=== PATIENT | female | born 1955 | race Caucasian/White ===

== ENCOUNTER 2019-04-07 10:27 | Observation (INO) ==
[2019-04-07] MEDS ORDERED: CeFAZolin Syr 2,000MG/20 ML 2,000 MG/20 ML SYRINGE IVPB ONE (10:43)
[2019-04-07] MEDS ORDERED: *HR* HYDROmorphone (PF) 1 MG/ML SYRINGE IVP PRN (10:45)
[2019-04-07] MEDS ORDERED: Ringers Solution, Lactated 1,000 ML IVC SCH (10:45)
[2019-04-07] MEDS ORDERED: *HR* OxyCODONE Immed Rel 5 MG TABLET PO PRN (10:45)
[2019-04-07] MEDS ORDERED: Gabapentin 300 MG CAPSULE PO ONE (10:59)
[2019-04-07] MEDS ORDERED: Celecoxib 200 MG CAPSULE PO ONE (10:59)
[2019-04-07] MEDS ORDERED: Ethanol\\Acetic Acid\\Na Ace\\Ben 1,000 ML IRRIG.SOLN IR ONE (13:02)
[2019-04-07] MEDS ORDERED: Dexamethasone 4 MG/ML VIAL ONE (13:03)
[2019-04-07] MEDS ORDERED: Propofol 500 MG/50 ML INFUS..BTL ONE (13:03)
[2019-04-07] MEDS ORDERED: *HR* FentaNYL (PF) 100 MCG/2 ML VIAL ONE (13:03)
[2019-04-07] MEDS ORDERED: *HR* Midazolam HCl 2 MG/2 ML VIAL ONE (13:03)
[2019-04-07] MEDS ORDERED: Lidocaine -MPF 2% 2 ML VIAL ONE (13:03)
[2019-04-07] MEDS ORDERED: Ropivacaine/PF 0.5% 30 ML VIAL ONE (13:09)
[2019-04-07] MEDS ORDERED: Total Joint Mixture (50 ml) IR ONE (13:10)
[2019-04-07] MEDS ORDERED: Tranexamic Acid 1,000 MG/10 ML VIAL ONE (13:11)
[2019-04-07] MEDS ORDERED: EPHEDrine 50 MG/ML VIAL ONE (13:47)
[2019-04-07] MEDS ORDERED: *HR* PHENYLEPHRINE 1,000 MCG/10 ML SYRINGE IVP ONE (14:11)
[2019-04-07] MEDS ORDERED: Ketorolac 30 MG/ML VIAL ONE (15:46)
[2019-04-07] MEDS ORDERED: Naloxone 0.4 MG/ML INJ IVP PRN (15:52)
[2019-04-07] MEDS ORDERED: Ondansetron 4 MG/2 ML VIAL IVP PRN (15:52)
[2019-04-07] MEDS ORDERED: Temazepam 15 MG CAPSULE PO PRN (15:52)
[2019-04-07] MEDS ORDERED: traMADol 50 MG TABLET PO PRN (15:52)
[2019-04-07] MEDS ORDERED: Sennosides 8.6 MG TABLET PO PRN (15:52)
[2019-04-07] MEDS ORDERED: MOM Conc 10 ML UD.LIQ PO PRN (15:52)
[2019-04-07] MEDS ORDERED: *HR* Promethazine 25 MG/ML VIAL IVP PRN (15:52)
[2019-04-07 16:19] LABS: Hematocrit 32.5 % (35.3-44.9); Hemoglobin 10.7 g/dL (11.5-15.4)
[2019-04-07] MEDS: Ascorbic Acid 500 MG TABLET PO SCH (16:42)
[2019-04-07] MEDS: Ringers Solution, Lactated 1,000 ML IVC SCH (16:43)
[2019-04-07] MEDS: Diclofenac Sodium (DR) 50 MG TABLET.DR PO SCH ×2 (17:44→20:51)
[2019-04-07] MEDS: *HR* OxyCODONE Immed Rel 5 MG TABLET PO PRN (17:44)
[2019-04-07] MEDS: Lisinopril-HCTZ 20-12.5mg TABLET PO SCH (18:23)
[2019-04-07] MEDS ORDERED: NON-FORMULARY MEDICATION 1 EACH EACH (Fish Oil/Dha/Epa [Fish Oil 1,200 Mg Fish Oil] 1 CAP) PO SCH (21:00)
[2019-04-08 04:30] LABS: Basophils % 0.4 %; Eosinophils # 0.1 K/mcL (0.0-0.6); Eosinophils % 1.2 %; Immature Granulocytes % 0.3 % (0-4); Lymphocytes # 2.9 K/mcL (0.6-4.6); Lymphocytes % 30.4 %; Mean Corpuscular HGB Conc 33.3 g/dL (31.6-35.5); Mean Corpuscular Hemoglobin 29.8 pg (28.0-33.3); Mean Corpuscular Volume 89.3 fL (83.0-100.0); Mean Platelet Volume 9.7 fL (9.4-12.4); Monocytes # 0.7 K/mcL (0.0-1.3); Monocytes % 7.3 %; Neutrophils # 5.7 K/mcL (1.6-8.9); Platelet Count 210 K/mcL (140-400); Red Blood Count 3.36 M/mcL (3.82-4.97); Red Cell Distribution Width 12.6 % (11.5-14.5); Segmented Neutrophils % 60.4 %; White Blood Count 9.4 K/mcL (4.3-11.1)
[2019-04-08 04:50] LABS: BUN/Creatinine Ratio 32 (6-26); Blood Urea Nitrogen 17 mg/dL (8-23); Calcium 8.3 mg/dL (8.6-10.3); Carbon Dioxide 27 mEq/L (23-29); Chloride 100 mEq/L (98-107); Glucose 102 mg/dL (70-105); Osmolality,Calculated 282 (280-300); Potassium 4.2 mEq/L (3.5-5.1); Sodium 135 mEq/L (136-145); eGFR For African Americans > 60 (> 60); eGFR For Non-African Americans > 60 (> 60)
[2019-04-08] MEDS: Ascorbic Acid 500 MG TABLET PO SCH ×2 (08:28→15:53)
[2019-04-08] MEDS: Diclofenac Sodium (DR) 50 MG TABLET.DR PO SCH ×3 (08:28→20:18)
[2019-04-08] MEDS: Multivit/Ca/Min/Fe/FA 1 TAB TABLET PO SCH (08:28)
[2019-04-08] MEDS ORDERED: NON-FORMULARY MEDICATION 1 EACH EACH (Multivitamin [Daily Multiple Vitamin] 1 TAB) PO SCH (09:00)
[2019-04-08] MEDS ORDERED: 0.9 % Sodium Chloride 1,000 ML IV ONE (11:38)
[2019-04-08] MEDS: *HR* Enoxaparin 30 MG/0.3 ML SYRINGE SQ SCH ×2 (12:42→20:18)
[2019-04-08] MEDS: Gabapentin 300 MG CAPSULE PO SCH ×2 (15:52→20:18)
[2019-04-08] MEDS: Lisinopril-HCTZ 20-12.5mg TABLET PO SCH (17:46)
[2019-04-08] MEDS: Ringers Solution, Lactated 1,000 ML IVC SCH (17:47)
[2019-04-08] MEDS: *HR* OxyCODONE Immed Rel 5 MG TABLET PO PRN (21:46)
[2019-04-08] MEDS: HYDROcodone BIT/Homatropine 5 MG TABLET PO PRN (23:18)
[2019-04-09 05:09] LABS: Basophils % 0.2 %; Eosinophils # 0.1 K/mcL (0.0-0.6); Hematocrit 28.6 % (35.3-44.9); Hemoglobin 9.9 g/dL (11.5-15.4); Immature Granulocytes % 0.6 % (0-4); Lymphocytes # 2.1 K/mcL (0.6-4.6); Lymphocytes % 24.3 %; Mean Corpuscular HGB Conc 34.6 g/dL (31.6-35.5); Mean Corpuscular Hemoglobin 30.2 pg (28.0-33.3); Mean Corpuscular Volume 87.2 fL (83.0-100.0); Mean Platelet Volume 9.9 fL (9.4-12.4); Monocytes # 0.7 K/mcL (0.0-1.3); Monocytes % 7.5 %; Neutrophils # 5.8 K/mcL (1.6-8.9); Platelet Count 208 K/mcL (140-400); Red Blood Count 3.28 M/mcL (3.82-4.97); Red Cell Distribution Width 12.4 % (11.5-14.5); Segmented Neutrophils % 66.4 %; White Blood Count 8.8 K/mcL (4.3-11.1)
[2019-04-09 05:29] LABS: BUN/Creatinine Ratio 27 (6-26); Blood Urea Nitrogen 11 mg/dL (8-23); Calcium 8.4 mg/dL (8.6-10.3); Carbon Dioxide 28 mEq/L (23-29); Chloride 101 mEq/L (98-107); Glucose 140 mg/dL (70-105); Osmolality,Calculated 284 (280-300); Potassium 3.9 mEq/L (3.5-5.1); Sodium 136 mEq/L (136-145); eGFR For African Americans > 60 (> 60); eGFR For Non-African Americans > 60 (> 60)
[2019-04-09] MEDS: Diclofenac Sodium (DR) 50 MG TABLET.DR PO SCH ×2 (07:40→14:17)
[2019-04-09] MEDS: HYDROcodone BIT/Homatropine 5 MG TABLET PO PRN ×4 (07:40→18:32)
[2019-04-09] MEDS: Multivit/Ca/Min/Fe/FA 1 TAB TABLET PO SCH (07:40)
[2019-04-09] MEDS: *HR* Enoxaparin 30 MG/0.3 ML SYRINGE SQ SCH (07:41)
[2019-04-09] MEDS: Ascorbic Acid 500 MG TABLET PO SCH ×2 (07:41→18:32)
[2019-04-09] MEDS: Gabapentin 300 MG CAPSULE PO SCH (07:41)
[2019-04-09] MEDS: Ringers Solution, Lactated 1,000 ML IVC SCH (07:42)
[2019-04-09 16:33] VITALS: BP 129/75
[2019-04-09] MEDS ORDERED: Lisinopril-HCTZ 20-12.5mg TABLET PO SCH (18:00)
== END 2019-04-09 19:32 | disposition other institution (70) ==
LOC: SAMDAY 10:27 → 3NENU 10:27 → 3ANU 15:37 → 3NENU 23:38
PROVIDERS: ADMIT Orthopaedic Surgery; ATTEND Orthopaedic Surgery